=== PATIENT | female | born 1935 | race Caucasian/White ===

== ENCOUNTER → 2018-02-19 | Outpatient (REF) | payer OTHER ==
[2018-02-19 13:02] LABS: RETIC HEMOGLOBIN EQUIVALENT 34.1 pg (24-36); RETICULOCYTE # 44.8 10^9/L (17-77); RETICULOCYTE % 1.5 % (0.5-1.5)
[2018-02-19 13:33] LABS: FERRITIN 136 NG/ML (8-252); IRON (FE) 68 UG/DL (50-170); PERCENT SATURATION 20.5 % (13.2-45.0); TOTAL IRON BINDING CAPACITY 331 UG/DL (250-450); TOTAL PROTEIN 11.6 GM/DL (6.4-8.2); VITAMIN B12 LEVEL 308 PG/ML (247-911)
[2018-02-21 11:53] LABS: ALBUMIN % 35.1 % (55.8-66.1); ALPHA-1-GLOBULIN % 3.8 % (2.9-4.9); ALPHA-2-GLOBULINS % 9.3 % (7.1-11.8); BETA-1-GLOBULINS % 4.2 % (4.7-7.2); BETA-2-GLOBULINS % 2.7 % (3.2-6.5); GAMMA GLOBULIN % 44.9 % (11.1-18.8)
[2018-02-21 11:54] LABS: ALBUMIN 4.07 GM/DL (3.29-5.55); ALPHA-1-GLOBULINS 0.44 GM/DL (0.17-0.41); ALPHA-2-GLOBULINS 1.08 GM/DL (0.42-0.99); BETA-1-GLOBULINS 0.49 GM/DL (0.28-0.60); BETA-2-GLOBULINS 0.31 GM/DL (0.19-0.55); GAMMA GLOBULINS 5.21 GM/DL (0.65-1.58)
[2018-02-22 00:09] LABS: HAPTOGLOBIN 204 mg/dL (34-200)
[2018-02-22 00:09] LABS: FREE KAPPA LIGHT CHAINS SERUM 202.4 mg/L (3.3-19.4); KAPPA/LAMBDA RATIO SERUM 33.73 (0.26-1.65)
== END ==
LOC: M LAB REF 12:44
DX: D64.9 Anemia, unspecified (principal)
CPT/HCPCS: 83010

== ENCOUNTER → 2018-03-07 | Outpatient (REF) | payer OTHER | LOC: M LAB REF 13:56 | DX: D47.2 Monoclonal gammopathy (principal); D64.9 Anemia, unspecified | CPT/HCPCS: 88300 ==

== ENCOUNTER → 2018-03-19 | Outpatient (REF) | payer OTHER ==
[2018-03-19 14:32] LABS: IMMUNOGLOBULIN G 5990 MG/DL (681-1648)
[2018-03-19 14:43] LABS: IMMUNOGLOBULIN M 16.9 MG/DL (40-230)
[2018-03-21 15:48] LABS: IMMUNOTYPING SERUM IGG ABNORMAL (NORMAL)
[2018-03-21 15:49] LABS: IMMUNOTYPING SERUM KAPPA ABNORMAL (NORMAL)
[2018-03-28 15:01] LABS: UPEP INTERPRETATION 2 M-SPIKES IN GAMMA; URINE VOLUME RANDOM ML
[2018-03-28 15:05] LABS: IMMUNOTYPE URINE IgG ABNORMAL (NORMAL); IMMUNOTYPE URINE KAPPA ABNORMAL (NORMAL)
== END ==
LOC: M LAB REF 13:21
DX: D64.9 Anemia, unspecified (principal); D47.2 Monoclonal gammopathy
CPT/HCPCS: 82784

== ENCOUNTER → 2018-04-25 | Outpatient (REF) | payer OTHER ==
[2018-04-25 15:38] LABS: IMMUNOGLOBULIN G 2290 MG/DL (681-1648); IMMUNOGLOBULIN M 34.3 MG/DL (40-230); TOTAL PROTEIN 7.7 GM/DL (6.4-8.2)
[2018-04-27 14:10] LABS: FREE KAPPA LIGHT CHAINS SERUM 76.3 mg/L (3.3-19.4); FREE LAMBDA LIGHT CHAINS SERUM 14.6 mg/L (5.7-26.3); KAPPA/LAMBDA RATIO SERUM 5.23 (0.26-1.65)
[2018-04-27 14:10] LABS: BETA 2 MICROGLOBULIN 4.7 mg/L (0.6-2.4)
[2018-05-01 16:04] LABS: ALBUMIN 3.34 GM/DL (3.29-5.55); ALBUMIN % 43.4 % (55.8-66.1); ALPHA-1-GLOBULIN % 5.1 % (2.9-4.9); ALPHA-1-GLOBULINS 0.39 GM/DL (0.17-0.41); ALPHA-2-GLOBULINS 0.93 GM/DL (0.42-0.99); ALPHA-2-GLOBULINS % 12.1 % (7.1-11.8); BETA-1-GLOBULINS 0.49 GM/DL (0.28-0.60); BETA-1-GLOBULINS % 6.4 % (4.7-7.2); BETA-2-GLOBULINS 0.29 GM/DL (0.19-0.55); BETA-2-GLOBULINS % 3.8 % (3.2-6.5); GAMMA GLOBULIN % 29.2 % (11.1-18.8); GAMMA GLOBULINS 2.25 GM/DL (0.65-1.58)
== END ==
LOC: M LAB REF 14:19
DX: D64.9 Anemia, unspecified (principal); D47.2 Monoclonal gammopathy
CPT/HCPCS: 84165

== ENCOUNTER 2018-05-02 11:24 | Outpatient (CLI) | payer OTHER ==
[2018-05-02] MEDS: ACETAMINOPHEN TAB 650MG DOSE (2X325MG) PO (13:17)
[2018-05-02] MEDS: diphenhydrAMINE 25 MG CAP PO (13:18)
[2018-05-02 15:32] LABS: IMMEDIATE SPIN CROSSMATCH 1 2
== END 2018-05-02 18:15 ==
LOC: M INFU 11:24
DX: C90.00 Multiple myeloma not having achieved remission (principal); D64.9 Anemia, unspecified; R01.1 Cardiac murmur, unspecified; Z79.84 Long term (current) use of oral hypoglycemic drugs; Z79.82 Long term (current) use of aspirin; Z79.899 Other long term (current) drug therapy; Z90.49 Acquired absence of other specified parts of digestive tract
CPT/HCPCS: 36430

== ENCOUNTER 2018-05-30 13:19 | Outpatient (CLI) | payer OTHER ==
[2018-05-30] MEDS: diphenhydrAMINE 50 MG CAP PO ×2 (14:10)
[2018-05-30] MEDS: ACETAMINOPHEN TAB 650MG DOSE (2X325MG) PO ×2 (14:11)
== END 2018-05-30 20:53 | disposition home or self-care (01) ==
LOC: M OPCLI4PV 13:19 → M MSPAV 13:37 → M OPCLI4PV 20:53
DX: C90.00 Multiple myeloma not having achieved remission (principal); D64.9 Anemia, unspecified
CPT/HCPCS: 36430

== ENCOUNTER 2018-06-27 12:22 | Outpatient (CLI) | payer OTHER ==
[2018-06-27] MEDS: ACETAMINOPHEN TAB 650MG DOSE (2X325MG) PO (14:21)
[2018-06-27] MEDS: diphenhydrAMINE 25 MG CAP PO (14:21)
[2018-06-27 14:28] LABS: IMMEDIATE SPIN CROSSMATCH 1 2
== END 2018-06-27 17:25 | disposition home or self-care (01) ==
LOC: M INFU 12:22 → M MS4PR 13:04 → M OPCLI4PR 17:25
DX: C90.00 Multiple myeloma not having achieved remission (principal); D64.9 Anemia, unspecified
CPT/HCPCS: 36430

== ENCOUNTER 2018-07-25 12:40 | Outpatient (CLI) | payer OTHER ==
[2018-07-25] MEDS: ACETAMINOPHEN TAB 650MG DOSE (2X325MG) PO (14:12)
[2018-07-25] MEDS: diphenhydrAMINE 25 MG CAP PO (14:13)
[2018-07-25 14:29] LABS: IMMEDIATE SPIN CROSSMATCH 1 1
[2018-07-25] MEDS: FUROSEMIDE 20 MG/2 ML VIAL (J1940) IV (16:00)
== END 2018-07-25 17:45 | disposition home or self-care (01) ==
LOC: M INFU 12:40
DX: D64.9 Anemia, unspecified (principal); C90.00 Multiple myeloma not having achieved remission
CPT/HCPCS: 36430